=== PATIENT | male | born 1995 | race African-American/Black ===

== ENCOUNTER 2019-01-08 09:13 | Emergency (ER) | payer SELFPAY ==
[2019-01-08] MEDS ORDERED: IBUPROFEN 400 MG TAB ONE (09:40)
[2019-01-08] MEDS ORDERED: ONDANSETRON 4 MG (ODT) TAB ONE (09:40)
[2019-01-08] MEDS ORDERED: KETOROLAC 30 MG/ML INJ ONE (09:47)
[2019-01-08] MEDS ORDERED: NA CHLORIDE 0.9% 1,000 ML ONE (11:20)
[2019-01-08 11:39] LABS: Absolute Lymphocytes (CBC) 1.4 K/uL (0.7-4.9); Basophils % 0.3 % (0-1.3); Hematocrit 42.3 % (39.6-49.0); Lymphocytes % 8.2 % (15.3-44.8); MPV 7.9 fL (7.6-11.3); RBC Red Blood Cell Count 4.75 M/uL (4.33-5.43)
[2019-01-08 11:48] LABS: Urine Blood 2+ (NEG); Urine Glucose NEGATIVE (NEG); Urine Protein 3+ (NEG); Urine Specific Gravity 1.025 (1.005-1.030)
[2019-01-08 11:57] LABS: Albumin 4.2 g/dL (3.4-5.0); Bilirubin Total 0.9 mg/dL (0.2-1.0); Potassium 3.5 mmol/L (3.5-5.1); Protein, Total 8.5 g/dL (6.4-8.2)
--- NOTE | 2019-01-08 12:20 | RAD REPORT ---
EXAM DESCRIPTION: RAD - Chest Single View - 01/08/2019 11:19 am CLINICAL HISTORY: COUGH Chest pain. COMPARISON: CHEST SINGLE VIEW dated 10/05/2012; CHEST SINGLE VIEW dated 08/22/2010; CHEST PA AND LAT 2 VIEW dated 1995 FINDINGS: Portable technique limits examination quality. The lungs are grossly clear. The heart is normal in size. No displaced fractures. IMPRESSION: No acute intrathoracic process suspected.
[2019-01-08 12:28] LABS: Urine Bacteria <20 /HPF (NONE SEEN); Urine Culture Reflex Order NOT NEEDED
--- NOTE | 2019-01-08 12:29 | RAD REPORT ---
EXAM DESCRIPTION: CT - Abdomen Pelvis Wo Contrast - 01/08/2019 12:19 pm CLINICAL HISTORY: Abdominal pain. FLANK PAIN [facility]2012 TECHNIQUE: CT imaging of the abdomen and pelvis was performed without contrast. Solid organ, bowel a nd vascular assessment is limited due to lack of IV and oral contrast. All CT scans are performed using dose optimization technique as appropriate and may include automated exposure control or mA/KV adjustment according to patient size. FINDINGS: The lower lung nicholas are clear. The liver, spleen, pancreas, adrenal glands and kidneys are within normal limits for a limited non-co ntrast examination. No bowel obstruction, free air, free fluid or abscess. The appendix is normal. The osseous structures are within normal limits. IMPRESSION: No acute intra-abdominal or pelvic findings. A limited non-contrast examination was performed as detailed.
--- NOTE | 2019-01-08 12:46 | ER ---
Nurse's Notes [facility] Name: Lisbet Head Age: 23 yrs Sex: Male : 1995 Arrival Date: 01/08/2019 Time: 09:15 Bed 16 Private MD: Diagnosis: Acute viral syndrome;Leukocytosis;Dehydration Presentation: 01/08 09:21 Presenting complaint: Body aches, chills, subjective fever, lower back pain, abdominal hb cramping, and N/V x 2 days. Transition of care: patient was not received from another setting of care. Onset of symptoms was January 07, 2019. Risk Assessment: Do you want to hurt yourself or someone else? Patient reports no desire to harm self or others. Initial Sepsis Screen: Does the patient meet any 2 criteria? Systolic BP < 90 mmHg. No. Patient's initial sepsis screen is negative. Does the patient have a suspected source of infection? No. Patient's initial sepsis screen is negative. Care prior to arrival: None. 09:21 Method Of Arrival: Ambulatory hb 09:22 Acuity: CARLIN 4 hb Historical: - Allergies: 09:22 No Known Allergies; hb - Home Meds: 09:22 None [Active]; hb - PMHx: 09:22 None; hb - PSHx: 09:22 None; hb - Immunization history:: Adult Immunizations up to date. - Social history:: Smoking status: Patient/guardian denies using tobacco. - Ebola Screening: : No symptoms or risks identified at this time. Screenin:29 Abuse screen: Denies threats or abuse. Nutritional screening: No deficits noted. rb1 Tuberculosis screening: No symptoms or risk factors identified. Fall Risk None identified. Assessment: 09:25 General: Appears uncomfortable, Behavior is calm, cooperative, Reports chills for fever rb1 for feeling ill for fatigue for. Pain: Complains of pain in bodyaches. Neuro: Level of Consciousness is awake, alert, obeys commands, Oriented to person, place, time, situation. Cardiovascular: Capillary refill < 3 seconds is brisk in bilateral fingers. Respiratory: Airway is patent Respiratory effort is even, unlabored, Respiratory pattern is regular, symmetrical. GI: Bowel sounds present X 4 quads. Abd is soft X 4 quads Reports nausea. : No signs and/or symptoms were reported regarding the genitourinary system. Derm: Skin is dry, Skin is normal, Skin temperature is warm. 10:25 Reassessment: Patient appears in no apparent distress at this time. Patient and/or rb1 family updated on plan of care and expected duration. Pain level reassessed. Patient is alert, oriented x 3, equal unlabored respirations, skin warm/dry/pink. 11:25 Reassessment: Patient appears in no apparent distress at this time. No changes from rb1 previously documented assessment. 12:30 Reassessment: Patient appears in no apparent distress at this time. Patient and/or rb1 family updated on plan of care and expected duration. Pain level reassessed. Patient is alert, oriented x 3, equal unlabored respirations, skin warm/dry/pink. Vital Signs: 09:22 BP 145 / 100; Pulse 96; Resp 16; Temp 99.3(TE); Pulse Ox 100% on R/A; Weight 83.91 kg; hb Height 5 ft. 8 in. (172.72 cm); Pain 7/10; 10:22 BP 124 / 64; Pulse 66; Resp 16; Pulse Ox 97% on R/A; Pain 7/10; rb1 11:22 BP 128 / 79; Pulse 72; Resp 17; Pulse Ox 100% ; rb1 12:22 BP 140 / 82; Pulse 63; Resp 17; Pulse Ox 99% on R/A; rb1 09:22 Body Mass Index 28.13 (83.91 kg, 172.72 cm) hb ED Course: 09:15 Patient arrived in ED. mr 09:17 Handy Rubio MD is Attending Physician. ps1 09:22 Arm band placed on. hb 09:23 Triage completed. hb 09:25 Warm blanket given. rb1 09:36 Humaira Butler, RN is Primary Nurse. rb1 11:21 CXR XRAY In Process Unspecified. EDMS 11:25 Inserted saline lock: 22 gauge in left antecubital area, using aseptic technique. Blood rb1 collected. 12:19 CT Abd/Pelvis - Without Contrast In Process Unspecified. EDMS 12:29 Patient has correct armband on for positive identification. Bed in low position. Call rb1 light in reach. Side rails up X 1. Pulse ox on. NIBP on. 13:07 No provider procedures requiring assistance completed. IV discontinued, intact, rb1 bleeding controlled, No redness/swelling at site. Pressure dressing applied. Administered Medications: 09:48 Drug: Motrin 800 mg Route: PO; rb1 10:22 Follow up: Response: No adverse reaction rb1 09:48 Drug: Zofran 4 mg Route: PO; rb1 10:02 Follow up: Response: No adverse reaction; Nausea is decreased rb1 11:25 Drug: NS 0.9% 1000 ml Route: IV; Rate: 1 bolus; Site: left antecubital; rb1 12:33 Follow up: IV Status: Completed infusion rb1 Outcome: 12:46 Discharge ordered by . ps1 13:07 Discharged to home ambulatory, with significant other. rb1 13:07 Condition: stable 13:07 Discharge instructions given to patient, Instructed on discharge instructions, follow up and referral plans. medication usage, Demonstrated understanding of instructions, follow-up care, medications, Prescriptions given X 2. 13:07 Patient left the ED. rb1 Signatures: Dispatcher [employer] [facility] Marion Hunt mr Humaira Butler RN RN rb1 Kimberley Victor RN RN hb Handy Rubio MD MD ps1 Corrections: (The following items were deleted from the chart) 09:24 09:21 Presenting complaint: Body aches, chills, subjective fever, lower abdominal pain, hb and N/V x 2 days. hb 15:55 13:16 Patient left the ED. hb rb1
--- NOTE | 2019-01-08 12:47 | EDPHYS ---
Physician Documentation [facility] Name: Lisbet Head Age: 23 yrs Sex: Male : 1995 Arrival Date: 01/08/2019 Time: 09:15 Bed 16 Private MD: ED Physician Handy Rubio HPI: 01/08 09:30 This 23 yrs old Black Male presents to ER via Ambulatory with complaints of Flu ps1 Symptoms. 09:30 cough, sore throat, adenopathy, generalized fatigue, myalgias for a day. No fever. Has ps1 taken OTC medications for flu but had an episode of vomiting. No flu shot this year. No distress. . Historical: - Allergies: 09:22 No Known Allergies; hb - Home Meds: 09:22 None [Active]; hb - PMHx: :22 None; hb - PSHx: 09:22 None; hb - Immunization history:: Adult Immunizations up to date. - Social history:: Smoking status: Patient/guardian denies using tobacco. - Ebola Screening: : No symptoms or risks identified at this time. ROS: 09:30 Eyes: Negative for injury, pain, redness, and discharge. ps1 09:30 Cardiovascular: Negative for chest pain, palpitations, and edema, Respiratory: Negative for shortness of breath, cough, wheezing, and pleuritic chest pain, MS/Extremity: Negative for injury and deformity, Neuro: Negative for headache, weakness, numbness, tingling, and seizure. 09:30 Constitutional: Positive for body aches, chills, fever, malaise. 09:30 Neck: Positive for swollen nodes. 09:30 Abdomen/GI: Positive for nausea and vomiting. 09:30 Neuro: Positive for headache. Exam: 09:30 Constitutional: This is a well developed, well nourished patient who is awake, alert, ps1 and in no acute distress. Head/Face: Normocephalic, atraumatic. Eyes: Pupils equal round and reactive to light, extra-ocular motions intact. Lids and lashes normal. Conjunctiva and sclera are non-icteric and not injected. Chest/axilla: Normal chest wall appearance and motion. Nontender with no deformity. No lesions are appreciated. Cardiovascular: Regular rate and rhythm. No gallops, murmurs, or rubs. Normal PMI, no JVD. No pulse deficits. Respiratory: Lungs have equal breath sounds bilaterally, clear to auscultation and percussion. No rales, rhonchi or wheezes noted. No increased work of breathing, no retractions or nasal flaring. Abdomen/GI: Soft, non-tender, with normal bowel sounds. No distension or tympany. No guarding or rebound. No evidence of tenderness throughout. MS/ Extremity: Pulses equal, no cyanosis. Neurovascular intact. Full, normal range of motion. Neuro: Awake and alert, GCS 15, oriented to person, place, time, and situation. Cranial nerves II-XII grossly intact. Sensory grossly intact. Psych: Awake, alert, with orientation to person, place and time. Behavior, mood, and affect are within normal limits. Vital Signs: 09:22 BP 145 / 100; Pulse 96; Resp 16; Temp 99.3(TE); Pulse Ox 100% on R/A; Weight 83.91 kg; hb Height 5 ft. 8 in. (172.72 cm); Pain 7/10; 10:22 BP 124 / 64; Pulse 66; Resp 16; Pulse Ox 97% on R/A; Pain 7/10; rb1 11:22 BP 128 / 79; Pulse 72; Resp 17; Pulse Ox 100% ; rb1 12:22 BP 140 / 82; Pulse 63; Resp 17; Pulse Ox 99% on R/A; rb1 09:22 Body Mass Index 28.13 (83.91 kg, 172.72 cm) hb MDM: 09:30 Patient medically screened. ps1 12:51 Data reviewed: vital signs, nurses notes, lab test result(s), radiologic studies, and ps1 as a result, I will discharge patient. Counseling: I had a detailed discussion with the patient and/or guardian regarding: the historical points, exam findings, and any diagnostic results supporting the discharge/admit diagnosis, lab results, radiology results, to return to the emergency department if symptoms worsen or persist or if there are any questions or concerns that arise at home. 01/08 09:29 Order name: Flu; Complete Time: 10:07 ps1 01/08 10:58 Order name: Urine Dipstick--Ancillary (enter results); Complete Time: 12:00 hb 01/08 11:09 Order name: CBC with Diff; Complete Time: 12:00 ps1 01/08 11:09 Order name: CMP; Complete Time: 12:00 ps1 01/08 11:09 Order name: Urine Microscopic Only; Complete Time: 12:43 ps1 01/08 11:09 Order name: CXR XRAY; Complete Time: 12:24 ps1 12 09:29 Order name: Urine Dipstick-Ancillary (obtain specimen); Complete Time: 10:58 ps1 01/08 11:35 Order name: IV Start; Complete Time: 11:35 rb1 01/08 12:01 Order name: CT Abd/Pelvis - Without Contrast; Complete Time: 12:43 ps1 Administered Medications: 09:48 Drug: Motrin 800 mg Route: PO; rb1 10:22 Follow up: Response: No adverse reaction rb1 09:48 Drug: Zofran 4 mg Route: PO; rb1 10:02 Follow up: Response: No adverse reaction; Nausea is decreased rb1 11:25 Drug: NS 0.9% 1000 ml Route: IV; Rate: 1 bolus; Site: left antecubital; rb1 12:33 Follow up: IV Status: Completed infusion rb1 Disposition: 01/08/19 12:46 Discharged to Home. Impression: Acute viral syndrome, Leukocytosis, Dehydration. - Condition is Stable. - Discharge Instructions: Influenza, Adult. - Prescriptions for Anaprox DS 550 mg Oral Tablet - take 1 tablet by ORAL route every 12 hours As needed; 20 tablet. Zofran 4 mg Oral Tablet - take 1 tablet by ORAL route every 12 hours As needed; 20 tablet. - Medication Reconciliation Form, Thank You Letter, Antibiotic Education, Prescription Opioid Use form. - Follow up: Private Physician; When: 48 Hours; Reason: Recheck today's complaints, Continuance of care, Re-evaluation by your physician. Follow up: Emergency Department; When: As needed; Reason: Fever > 102 F, Worsening of condition. - Problem is new. - Symptoms have improved. Signatures: Dispatcher [employer] EDMT Humaira Butler, ELSIE RN rb1 Kimberley Victor RN RN hb Handy Rubio MD MD ps1 Corrections: (The following items were deleted from the chart) 13:16 12:46 01/08/2019 12:46 Discharged to Home. Impression: Acute viral syndrome; hb Leukocytosis; Dehydration. Condition is Stable. Forms are Medication Reconciliation Form, Thank You Letter, Antibiotic Education, Prescription Opioid Use. Follow up: Private Physician; When: 48 Hours; Reason: Recheck today's complaints, Continuance of care, Re-evaluation by your physician. Follow up: Emergency Department; When: As needed; Reason: Fever > 102 F, Worsening of condition. Problem is new. Symptoms have improved. ps1
[2019-01-08 13:28] VITALS: TEMP 99.3
[2019-01-08 13:32] VITALS: BP 140/82; O2SAT 99
== END 2019-01-08 13:16 | disposition home or self-care (01) ==
LOC: ER 09:13
DX: B34.9 Viral infection, unspecified (principal); D72.829 Elevated white blood cell count, unspecified; E86.0 Dehydration
CPT/HCPCS: 36415; 71045; 74176; 80053; 81003; 81015; 85025; 87804; 96360; 99284; J7030

== ENCOUNTER 2021-12-28 20:17 | Emergency (ER) | payer SELFPAY ==
[2021-12-28] MEDS ORDERED: ONDANSETRON 4 MG (ODT) TAB ONE (21:13)
[2021-12-28 22:07] LABS: SARS-COV-2 RT PCR NEGATIVE (NEGATIVE)
[2021-12-28] MEDS ORDERED: IBUPROFEN 400 MG TAB ONE (23:25)
[2021-12-28] MEDS ORDERED: PROMETHAZINE INJ 25 MG/ML AMP ONE (23:25)
[2021-12-28] MEDS ORDERED: FAMOTIDINE 20 MG TAB ONE (23:26)
--- NOTE | 2021-12-29 | EDPHYS ---
Physician Documentation [facility] Name: Lisbet Head Age: 26 yrs Sex: Male : 1995 Arrival Date: 12/28/2021 Time: 20:19 Bed 11 Private MD: ED Physician Franchesca Martin HPI: 12/28 22:19 This 26 yrs old Black Male presents to ER via Ambulatory with complaints of sd2 Nausea/Vomiting. 22:19 26 yo M presents with CC of nausea and vomiting. Reports subjective fever, chills and sd2 body aches for the past 3 days in addition with occasional diarrhea. No known recent sick contacts. Has been taking 200 mg Ibuprofen and last took earlier this morning. Has not taken any other OTC medications. Received Zofran 4 mg in triage but reports continued nausea and vomiting. . Historical: - Allergies: 21:10 No Known Allergies; as6 - Home Meds: 21:10 None [Active]; as6 - PMHx: 21:10 None; as6 - PSHx: 21:10 None; as6 - Immunization history:: Client reports having NOT received the Covid vaccine. Flu vaccine is not up to date. - Social history:: Smoking status: Patient reports the use of cigarette tobacco products, smokes one-half pack cigarettes per day. ROS: 22:19 Eyes: Negative for injury, pain, redness, and discharge, Cardiovascular: Negative for sd2 chest pain, palpitations, and edema, Respiratory: Positive for SOB and cough, negative for wheezing. 22:19 : Negative for dysuria, frequency or hematuria. MS/Extremity: Negative for injury and deformity, Skin: Negative for injury, rash, and discoloration, Neuro: Negative for headache, numbness and tingling. 22:19 Constitutional: Positive for body aches, chills, fatigue, fever. 22:19 Abdomen/GI: Positive for nausea and vomiting, diarrhea, Negative for black/tarry stool. Exam: 22:19 Constitutional: This is a well developed, well nourished patient who is awake, alert, sd2 and in no acute distress. Head/Face: Normocephalic, atraumatic. Eyes: EOMI, normal conjunctiva bilaterally Chest/axilla: Normal chest wall appearance and motion. Nontender with no deformity. Cardiovascular: Regular rate and rhythm with a normal S1 and S2. No gallops, murmurs, or rubs. 2+ distal pulses. Respiratory: Lungs have equal breath sounds bilaterally, clear to auscultation and percussion. No rales, rhonchi or wheezes noted. No increased work of breathing, no retractions or nasal flaring. Abdomen/GI: Soft, non-tender, with normal bowel sounds. No guarding or rebound. No evidence of tenderness throughout. Skin: Warm, dry with normal turgor. Normal color with no rashes, no lesions, and no evidence of cellulitis. MS/ Extremity: Pulses equal, no cyanosis. Neurovascular intact. Full, normal range of motion. Ambulatory without difficulty. Psych: Awake, alert, with orientation to person, place and time. Behavior, mood, and affect are within normal limits. Vital Signs: 21:09 BP 155 / 87; Pulse 87; Resp 18 S; Temp 99.2(O); Pulse Ox 96% on R/A; Weight 68.04 kg as6 (R); Height 5 ft. 5 in. (165.10 cm) (R); Pain 6/10; 21:09 Body Mass Index 24.96 (68.04 kg, 165.10 cm) as6 MDM: 21:24 Patient medically screened. sd2 22:19 Differential diagnosis: Differential diagnosis includes but is not limited to: Viral sd2 URI, acute otitis media, acute otitis externa, pneumonia, UTI, COVID, flu, herpangina among others. Data reviewed: vital signs, nurses notes, lab test result(s). Counseling: I had a detailed discussion with the patient and/or guardian regarding: the historical points, exam findings, and any diagnostic results supporting the discharge/admit diagnosis, lab results, the need for outpatient follow up, to return to the emergency department if symptoms worsen or persist or if there are any questions or concerns that arise at home. 23:58 Data reviewed:. ED course: Pt resting comfortably at time of my repeat evaluation. sd2 Feeling improved. Tolerating PO. Will discharge home with continued supportive care and outpatient follow up. Verbalizes understanding of discharge plan and strict return precautions. . 12/28 21:11 Order name: COVID-19/FLU A+B; Complete Time: 22:12 as6 Administered Medications: 21:14 Drug: Ondansetron 4 mg Route: PO; as6 12/29 00:17 Follow up: Response: No adverse reaction as6 12/28 23:34 Drug: Phenergan (promethazine) 25 mg Route: IM; Site: right vastus lateralis; tw12/29 00:17 Follow up: Response: No adverse reaction as6 12/28 23:34 Drug: Ibuprofen 800 mg Route: PO; 12/29 00:17 Follow up: Response: No adverse reaction as6 12/28 23:34 Drug: Pepcid (famotidine) 20 mg Route: PO; 12/29 00:17 Follow up: Response: No adverse reaction as6 Disposition Summary: 12/28/21 23:59 Discharge Ordered Location: Home sd2 Problem: new sd2 Symptoms: have improved sd2 Condition: Stable sd2 Diagnosis - Influenza due to identified novel influenza A virus sd2 Followup: sd2 - With: Private Physician - When: 2 - 3 days - Reason: Recheck today's complaints, Continuance of care, Re-evaluation by your physician Discharge Instructions: - Discharge Summary Sheet sd2 - Influenza, Adult, [id number] sd2 Forms: - Medication Reconciliation Form sd2 - Thank You Letter sd2 - Antibiotic Education sd2 - Prescription Opioid Use sd2 Prescriptions: - Ibuprofen 600 mg Oral Tablet - take 1 tablet by ORAL route every 6 hours As needed take with food; 20 tablet; sd2 Refills: 0, Product Selection Permitted - promethazine 25 mg Oral Tablet - take 1 tablet by ORAL route every 6 hours As needed; 15 tablet; Refills: 0, sd2 Product Selection Permitted Signatures: Dispatcher [employer] Patricia Neil tw5 Gasper Felix RN RN as6 Franchesca Martin MD MD sd2
--- NOTE | 2021-12-29 | ER ---
Nurse's Notes [facility] Name: Lisbet Head Age: 26 yrs Sex: Male : 1995 Arrival Date: 12/28/2021 Time: 20:19 Bed 11 Private MD: Diagnosis: Influenza due to identified novel influenza A virus Presentation: 12/28 21:09 Chief complaint: Patient states: "I am vomiting, I can't keep anything down, I just as6 don't feel good". Coronavirus screen: Client presents with at least one sign or symptom that may indicate coronavirus-19. Ebola Screen: No symptoms or risks identified at this time. Initial Sepsis Screen: Does the patient meet any 2 criteria? No. Patient's initial sepsis screen is negative. Does the patient have a suspected source of infection? No. Patient's initial sepsis screen is negative. Risk Assessment: Do you want to hurt yourself or someone else? Patient reports no desire to harm self or others. Onset of symptoms was December 26, 2021. 21:09 Method Of Arrival: Ambulatory as6 21:09 Acuity: CARLIN 4 as6 Triage Assessment: 23:33 General: Appears in no apparent distress. Behavior is calm, cooperative, appropriate tw5 for age. 12/29 00:17 GI: Reports. as6 Historical: - Allergies: 12/28 21:10 No Known Allergies; as6 - Home Meds: 21:10 None [Active]; as6 - PMHx: 21:10 None; as6 - PSHx: 21:10 None; as6 - Immunization history:: Client reports having NOT received the Covid vaccine. Flu vaccine is not up to date. - Social history:: Smoking status: Patient reports the use of cigarette tobacco products, smokes one-half pack cigarettes per day. Screenin:32 Abuse screen: Denies threats or abuse. Denies injuries from another. Nutritional tw5 screening: No deficits noted. Tuberculosis screening: No symptoms or risk factors identified. Fall Risk None identified. Assessment: 23:32 General: Reports "I just threw up a little bit. I am still feeling pretty nausous at tw5 this time.". GI: Abdomen is flat, non-distended, Pt is actively vomiting bile. Vital Signs: 21:09 BP 155 / 87; Pulse 87; Resp 18 S; Temp 99.2(O); Pulse Ox 96% on R/A; Weight 68.04 kg as6 (R); Height 5 ft. 5 in. (165.10 cm) (R); Pain 6/10; 21:09 Body Mass Index 24.96 (68.04 kg, 165.10 cm) as6 ED Course: 20:19 Patient arrived in ED. as 20:42 Franchesca Martin MD is Attending Physician. sd2 21:10 Triage completed. as6 21:11 Arm band placed on. as6 23:32 Patricia Laboy is Primary Nurse. tw5 23:32 Patient has correct armband on for positive identification. tw5 23:32 No provider procedures requiring assistance completed. Patient did not have IV access tw5 during this emergency room visit. Administered Medications: 21:14 Drug: Ondansetron 4 mg Route: PO; as6 12/29 00:17 Follow up: Response: No adverse reaction as6 12/28 23:34 Drug: Phenergan (promethazine) 25 mg Route: IM; Site: right vastus lateralis; tw5 12/29 00:17 Follow up: Response: No adverse reaction as6 12/28 23:34 Drug: Ibuprofen 800 mg Route: PO; tw5 12/29 00:17 Follow up: Response: No adverse reaction as6 12/28 23:34 Drug: Pepcid (famotidine) 20 mg Route: PO; tw5 12/29 00:17 Follow up: Response: No adverse reaction as6 Medication: 12/28 23:32 VIS not applicable for this client. tw5 Outcome: 23:59 Discharge ordered by . sd2 12/29 00:17 Discharged to home ambulatory. as6 Condition: stable Discharge instructions given to patient, Instructed on discharge instructions, follow up and referral plans. medication usage, Demonstrated understanding of instructions, follow-up care, medications, Prescriptions given X 2. 00:18 Patient left the ED. as6 Signatures: Arlen De Los Santos as Patricia Laboy tw5 Gasper Felix, RN RN as6 Franchesca Martin MD MD sd2
[2021-12-29 00:23] VITALS: BP 155/87; TEMP 99.2; O2SAT 96
== END 2021-12-29 00:18 | disposition home or self-care (01) ==
LOC: ER 20:17
DX: J10.1 Influenza due to other identified influenza virus with other respiratory manifestations (principal); Z20.822 Contact with and (suspected) exposure to COVID-19; F17.210 Nicotine dependence, cigarettes, uncomplicated
CPT/HCPCS: 0240U; 96372; 99283; J2550; Q0162

== ENCOUNTER 2024-06-05 09:44 | Emergency (ER) | payer SELFPAY ==
[2024-06-05] MEDS ORDERED: LIDOCAINE 1% 20 ML MDV ONE (10:30)
[2024-06-05] MEDS ORDERED: TETRACAINE HCL 0.5% 4ML OPTH ONE (10:37)
[2024-06-05] MEDS ORDERED: TDAP (DIPHTH,PERTUSS(ACELL),TET VAC) 0.5 ML VIAL IMVAC ONE (10:38)
--- NOTE | 2024-06-05 11:05 | RAD REPORT ---
EXAM: XR RIGHT HAND HISTORY: Pain. hand laceration, hand through glass COMPARISON: None TECHNIQUE: Multiple projections of the right hand submitted. FINDINGS: Soft tissue swelling is seen along the ulnar aspect of the hand. No fracture appreciated. N o radiopaque foreign body evident.
--- NOTE | 2024-06-05 11:14 | ER ---
Nurse's Notes [facility] Name: Lisbet Head Age: 28 yrs Sex: Male : 1995 Arrival Date: 06/05/2024 Time: 09:44 Bed 12 Private MD: Diagnosis: Laceration without foreign body of right hand, initial encounter Presentation: 06/05 09:51 Chief complaint: Patient states: cut his right hand on some glass. Coronavirus screen: iw At this time, the client does not indicate any symptoms associated with coronavirus-19. Ebola Screen: No symptoms or risks identified at this time. Complicating Factors:. Initial Sepsis Screen: Does the patient meet any 2 criteria? No. Patient's initial sepsis screen is negative. Does the patient have a suspected source of infection? No. Patient's initial sepsis screen is negative. Risk Assessment: Do you want to hurt yourself or someone else? Patient reports no desire to harm self or others. 09:51 Method Of Arrival: Ambulatory iw 09:51 Acuity: CARLIN 4 iw Triage Assessment: 10:00 General: Appears in no apparent distress. Behavior is cooperative. Injury Description: iw Laceration sustained to right hand. Historical: - Allergies: 11:27 No Known Allergies; iw - Home Meds: 11:27 None [Active]; iw - PMHx: 11:27 None; iw - Family history:: not pertinent. - Hospitalizations: : No recent hospitalization is reported. Screenin:00 [facility] ED Fall Risk Assessment (Adult) History of falling in the last 3 months, iw including since admission No falls in past 3 months (0 pts) Confusion or Disorientation No (0 pts) Intoxicated or Sedated No (0 pts) Impaired Gait No (0 pts) Mobility Assist Device Used No (0 pt) Altered Elimination No (0 pt) Score/Fall Risk Level 0 - 2 = Low Risk Oriented to surroundings, Maintained a safe environment. Abuse screen: Denies threats or abuse. Denies injuries from another. Assessment: 10:00 General: Appears in no apparent distress. Behavior is calm, cooperative. Pain: iw Complains of pain in right hand. Neuro: Level of Consciousness is awake, alert, obeys commands, Moves all extremities. Derm: Skin is intact, is healthy with good turgor. Musculoskeletal: Range of motion: intact in all extremities. Injury Description: Laceration sustained to right hand is 0.5 to 2.5 cm long. Vital Signs: 09:51 BP 146 / 99; Pulse 93; Resp 19; Temp 98.3; Pulse Ox 100% on R/A; Weight 83.91 kg; iw Height 5 ft. 9 in. ; 09:51 Body Mass Index 27.32 (83.91 kg, 175.26 cm) iw ED Course: 09:45 Patient arrived in ED. mr 09:45 Jason Carrera MD is Attending Physician. rn 09:53 Triage completed. iw 10:00 Arm band placed on. iw 10:25 XRAY Hand RIGHT 3 View In Process Unspecified. EDMS 10:49 Juliette Francis RN is Primary Nurse. iw 11:27 Assist provider with laceration repair on right hand that was 2.5 cm. or less using iw sutures. Set up tray. Performed by Jason Carrera MD Patient tolerated well. Patient did not have IV access during this emergency room visit. Administered Medications: Not Given (Other): tetanus-diphtheria toxoidadult 0.5 ml IM once; Provide Vaccine Information Statement (VIS). 10:00 Drug: Lidocaine Infiltration (1 %) 1 vials 20 ml Infiltration once; to bedside {Note: iw admin by Dr. Carrera .} Volume: 20 ml; Route: Infiltration; 11:27 Drug: Ibuprofen PO 600 mg PO once Route: PO; iw 11:30 Follow up: Response: No adverse reaction iw Medication: 11:27 Vaccine Information Statement (VIS) provided today. Questions and/or concerns iw addressed. VIS edition date: September 27, 2020. Outcome: 11:14 Discharge ordered by . rn 11:27 Discharged to Law Enforcement iw 11:27 Condition: good 11:27 Discharge instructions given to police, Instructed on discharge instructions, follow up and referral plans. medication usage, Demonstrated understanding of instructions, follow-up care, medications, 11:28 Patient left the ED. iw Signatures: Dispatcher [employer] EDOK Marion Hunt, Reg Reg Juliette Francis, RN RN iw Jason Carrera MD MD rn
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
[2024-06-05] MEDS ORDERED: IBUPROFEN 200 MG TAB PO ONE (11:17)
[2024-06-06 13:39] VITALS: BP 146/99; TEMP 98.3; O2SAT 100
== END 2024-06-05 11:28 | disposition home or self-care (01) ==
LOC: ER 09:44
DX: S61.411A Laceration without foreign body of right hand, initial encounter (principal); W25.XXXA Contact with sharp glass, initial encounter
CPT/HCPCS: 12042; 90715; 99283; J2003